=== PATIENT | female | born 1950 | race Caucasian/White ===

== ENCOUNTER 2017-06-14 12:57 | Emergency (ER) | payer OTHER, MEDICAID ==
[~2017-06-14] VITALS: Ht 157.5 cm; Wt 65.1 kg
[2017-06-14 13:08] VITALS: Ht 157.5 cm; Wt 65.1 kg
[2017-06-14 14:18] LABS: microscopic required? NO
[2017-06-14 14:40] LABS: UA SPECIFIC GRAVITY <=1.005 (1.005-1.035); urine erythrocyte NEGATIVE (NEGATIVE)
[2017-06-14 14:47] LABS: BASOPHIL % 0.5 % (0-2); RED CELL DISTRIBUTION WIDTH 13.5 % (11.5-14.5)
[2017-06-14 14:48] LABS: PLATELET COUNT 119 x10^3mcL (130-400)
[2017-06-14 15:03] LABS: ALKALINE PHOSPHATASE 72 U/L (46-116); ALT/SGPT 22 U/L (14-59); AST/SGOT 13 U/L (15-37); BILIRUBIN TOTAL 0.3 mg/dL (0.20-1.00); CALCIUM 8.1 mg/dL (8.5-10.1); CARBON DIOXIDE 22.2 mmol/L (21-32); CHLORIDE SERUM 100 mmol/L (98-107); CREATININE SERUM 0.9 mg/dL (0.6-1.0); GFR1 > 60 mL/min; SODIUM SERUM 131 mmol/L (136-145); TOTAL PROTEIN, SERUM 6.3 g/dL (6.4-8.2)
[2017-06-14 15:05] LABS: ALBUMIN 3.3 g/dL (3.4-5.0)
[2017-06-14 15:07] LABS: CK-MB 0.5 ng/mL (0-3.6); GLUCOSE SERUM 561 mg/dL (74-106)
[2017-06-14 15:23] VITALS: BP 124/61
== END 2017-06-14 17:13 | disposition home or self-care (01) ==
LOC: ED 12:57
PROVIDERS: Emergency Medicine
DX: E11.65 Type 2 diabetes mellitus with hyperglycemia (principal); I10 Essential (primary) hypertension; J45.909 Unspecified asthma, uncomplicated; E07.9 Disorder of thyroid, unspecified; G89.29 Other chronic pain; M25.569 Pain in unspecified knee; M81.0 Age-related osteoporosis without current pathological fracture
CPT/HCPCS: 82962; 83880; J1815; J1885; J7030; Q0092

== ENCOUNTER 2018-01-09 08:22 | Inpatient (IN) | payer OTHER, MEDICAID ==
[~2018-01-09] VITALS: Ht 152.4 cm; Wt 64.0 kg
[~2018-01-09 08:22] MED LIST: ASPIR LOW81 MG PO; BENAZEPRIL HYDR40 M1 PO; FLUOXETINE40 MG PO; GABAPENTIN100 M2 PO; HUMULIN R100 U/1 M1 SC; LEVEMIR100 U/M1 SC; MAPAP500 M3 PO; MECLIZINE HYDRO25 M1 PO; MULTIVITAMIN1 SGL PO; RANITIDINE HCL150 M1 PO; SIMVASTATIN20 M1 PO; TRAVEL SICKNESS25 M1 PO; ZOF4 PO
[2018-01-09 08:32] VITALS: Ht 152.4 cm; Wt 64.0 kg
[2018-01-09 09:46] LABS: BASOPHIL % 0.4 % (0-2); PLATELET COUNT 144 x10^3mcL (130-400); RED CELL DISTRIBUTION WIDTH 12.8 % (11.5-14.5)
[2018-01-09 10:15] LABS: CALCIUM 8.6 mg/dL (8.5-10.1); CARBON DIOXIDE 22.6 mmol/L (21-32); CHLORIDE SERUM 103 mmol/L (98-107); CREATININE SERUM 0.9 mg/dL (0.6-1.0); GFR1 > 60 mL/min; GLUCOSE SERUM 335 mg/dL (74-106); POTASSIUM SERUM 4.7 mmol/L (3.5-5.1); SODIUM SERUM 134 mmol/L (136-145)
[2018-01-09 10:21] LABS: ALBUMIN 3.5 g/dL (3.4-5.0); ALKALINE PHOSPHATASE 70 U/L (46-116); ALT/SGPT 24 U/L (14-59); AST/SGOT 13 U/L (15-37); BILIRUBIN TOTAL 0.44 mg/dL (0.20-1.00); MAGNESIUM 1.9 mg/dL (1.8-2.4); TOTAL PROTEIN, SERUM 6.6 g/dL (6.4-8.2)
[2018-01-09 10:24] LABS: microscopic required? NO
[2018-01-09 10:25] LABS: CHOLESTEROL 213 mg/dL (<200); HDL CHOLESTEROL 91 mg/dL (40-60)
[2018-01-09 10:27] LABS: T3 TOTAL 0.81 ng/mL
[2018-01-09 10:32] LABS: UA SPECIFIC GRAVITY <=1.005 (1.005-1.035); urine erythrocyte NEGATIVE (NEGATIVE)
[2018-01-09 10:38] LABS: FREE T4 1.19 ng/dL (0.76-1.46); FREE THYROXINE INDEX 3.2 ug/dL (1.4-4.5); T4(THYROXINE) 8.2 ug/dL (4.7-13.3)
[2018-01-09 18:00] VITALS: BP 103/44
[2018-01-09 18:07] LABS: CHOLESTEROL/HDL RATIO 2.4
[2018-01-09 18:41] LABS: AMPHETAMINE QUAL UR NONE DETECTED (See below)
[2018-01-09 21:29] VITALS: BP 114/56
[2018-01-10 05:57] VITALS: BP 144/74
[2018-01-10 09:42] VITALS: BP 126/70
[2018-01-10 10:37] LABS: BASOPHIL % 0.4 % (0-2); PLATELET COUNT 154 x10^3mcL (130-400); RED CELL DISTRIBUTION WIDTH 12.9 % (11.5-14.5)
[2018-01-10 10:47] LABS: CALCIUM 8.3 mg/dL (8.5-10.1); CARBON DIOXIDE 23.3 mmol/L (21-32); CHLORIDE SERUM 107 mmol/L (98-107); CREATININE SERUM 0.8 mg/dL (0.6-1.0); GFR1 > 60 mL/min; GLUCOSE SERUM 228 mg/dL (74-106); POTASSIUM SERUM 3.8 mmol/L (3.5-5.1); SODIUM SERUM 136 mmol/L (136-145)
[2018-01-10 20:15] VITALS: BP 107/52
[2018-01-11 05:15] VITALS: BP 150/70
[2018-01-11 08:19] LABS: BASOPHIL % 0.4 % (0-2); PLATELET COUNT 166 x10^3mcL (130-400); RED CELL DISTRIBUTION WIDTH 13.4 % (11.5-14.5)
[2018-01-11 08:31] LABS: CALCIUM 9.2 mg/dL (8.5-10.1); CARBON DIOXIDE 23.2 mmol/L (21-32); CHLORIDE SERUM 105 mmol/L (98-107); CREATININE SERUM 0.8 mg/dL (0.6-1.0); GFR1 > 60 mL/min; GLUCOSE SERUM 270 mg/dL (74-106); MAGNESIUM 1.7 mg/dL (1.8-2.4); POTASSIUM SERUM 4.4 mmol/L (3.5-5.1); SODIUM SERUM 135 mmol/L (136-145)
[2018-01-11 09:10] VITALS: BP 132/51
[2018-01-11 14:26] VITALS: BP 100/67
[2018-01-11 16:05] VITALS: BP 132/51
[2018-01-11 18:00] VITALS: BP 107/64
[2018-01-11 18:22] VITALS: BP 141/66
== END 2018-01-11 20:56 | disposition home health service (06) | DRG 637 ==
LOC: ED 08:22 → MU 15:22
PROVIDERS: Emergency Medicine; Internal Medicine
DX: E11.65 Type 2 diabetes mellitus with hyperglycemia (principal); G93.41 Metabolic encephalopathy; E87.1 Hypo-osmolality and hyponatremia; E86.0 Dehydration; E78.5 Hyperlipidemia, unspecified; F41.8 Other specified anxiety disorders; F32.9 Major depressive disorder, single episode, unspecified; Z68.26 Body mass index [BMI] 26.0-26.9, adult; F41.9 Anxiety disorder, unspecified
CPT/HCPCS: 82962; 83880; 84439; 97110-GP; 97116-GP; 97530-GP; G0480; J1815; J2060; J2405; J3490; J7030; J7042; Q0092

== ENCOUNTER 2018-11-14 12:32 | Emergency (ER) | payer OTHER, MEDICAID ==
[~2018-11-14] VITALS: Ht 167.6 cm; Wt 62.1 kg
[2018-11-14 12:46] VITALS: Ht 167.6 cm; Wt 62.1 kg
[2018-11-14 14:07] LABS: BASOPHIL % 0.7 % (0-2); PLATELET COUNT 138 x10^3mcL (130-400); RED CELL DISTRIBUTION WIDTH 13.7 % (11.5-14.5)
[2018-11-14 14:17] LABS: CALCIUM 8.9 mg/dL (8.5-10.1); CARBON DIOXIDE 25.6 mmol/L (21-32); POTASSIUM SERUM 4.7 mmol/L (3.5-5.1)
[2018-11-14 14:22] LABS: ALBUMIN 3.5 g/dL (3.4-5.0); BILIRUBIN TOTAL 0.38 mg/dL (0.20-1.00)
[2018-11-14 18:30] VITALS: BP 150/76
== END 2018-11-14 18:57 | disposition short-term general hospital (02) ==
LOC: ED 12:32
PROVIDERS: Emergency Medicine
DX: S82.201A Unspecified fracture of shaft of right tibia, initial encounter for closed fracture (principal); S82.401A Unspecified fracture of shaft of right fibula, initial encounter for closed fracture; J45.909 Unspecified asthma, uncomplicated; I10 Essential (primary) hypertension; E11.9 Type 2 diabetes mellitus without complications; G89.29 Other chronic pain; M25.561 Pain in right knee; M25.562 Pain in left knee; W01.0XXA Fall on same level from slipping, tripping and stumbling without subsequent striking against object, initial encounter; Y93.89 Activity, other specified; Y92.89 Other specified places as the place of occurrence of the external cause; Y99.8 Other external cause status
CPT/HCPCS: J2270; J2405; Q0092